=== PATIENT | female | born 1955 | race Caucasian/White ===

== ENCOUNTER → 2017-12-08 09:11 | Outpatient (CLI) | payer OTHER, SELFPAY ==
--- NOTE | 2017-12-08 09:15 | DI.US.S_ITS ---
PROCEDURE: US PERIPH VENOUS LOW EXTREM RT INDICATIONS: right leg pain, r/o DVT TECHNIQUE: Real-time imaging, as well as color and pulse Doppler interrogation, were performed of the lower extremity deep veins from the inguinal ligament to the popliteal fossa. COMPARISON: None. FINDINGS: The deep veins are normally compressible, and free of intraluminal thrombus. Color and pulse Doppler demonstrate normal phasic intraluminal flow. There is normal augmentation response to distal compression maneuver. IMPRESSION: Negative for deep venous thrombosis. Dictated by: Epi Burkett M.D. on 12/08/2017 at 8:55 Approved by: Epi Burkett M.D. on 12/08/2017 at 8:55
== END ==
PROVIDERS: PCP Family Medicine; Visit Provider Internal Medicine
DX: M79.604 Pain in right leg (principal)
CPT/HCPCS: 93971

== ENCOUNTER → 2018-04-08 08:55 | Outpatient (CLI) | payer MEDICARE, OTHER, SELFPAY ==
[2018-04-08 09:46] LABS: Blood Urea Nitrogen 16 mg/dL (7-17); Calcium 9.8 mg/dL (8.4-10.2); Carbon Dioxide 28 mmol/L (22-32); Chloride 104 mmol/L (98-107); Cholesterol 295 mg/dL (140-199); Estimated Glomerular Filt Rate > 60.0 mL/min (>60); Glucose 99 mg/dL (80-110); HDL Cholesterol 66 mg/dL (40-60); HEMOLYSIS < 15 (0-50); LDL Cholesterol Calculated 197 mg/dL (<100); Potassium 3.9 mmol/L (3.4-5.1); Sodium 141 mmol/L (137-145); Triglycerides 158 mg/dL (35-150)
[2018-04-08 10:14] LABS: Creatinine Urine Random 196.4 mg/dL
[2018-04-08 10:42] LABS: Thyroid Stimulating Hormone 4.09 uIU/mL (0.47-4.68)
[2018-04-08 11:14] LABS: Microalbumi Creatinin Ratio Ur 3492.8 ug/mg CR (<30)
== END ==
PROVIDERS: PCP Family Medicine; Visit Provider Family Medicine
DX: E03.9 Hypothyroidism, unspecified (principal); I10 Essential (primary) hypertension
CPT/HCPCS: 36415; 80048; 80061; 82043; 82570; 84443

== ENCOUNTER 2018-04-20 08:51 | Outpatient (RCR) | payer MEDICARE, OTHER, SELFPAY ==
--- NOTE | 2018-04-20 12:53 | PT.OIE ---
Current Diagnoses Strain of muscle, fascia and tendon of the posterior muscle group at thigh level, right thigh, initial encounter (04/20/18) Past Medical History (Last Updated 09/14/17 @ 12:23 by Poornima Myrick) Osteopenia (Chronic) Depression (Chronic 2007) Hypertension (Chronic 2010) Hypothyroidism (Chronic 1999) Migraines (Chronic 1955) Foot pain (Chronic 2006) Fractures (Resolved 1959) Past Surgical History (Last Updated 09/14/17 @ 12:20 by Poornima Myrick) Anesthesia (Resolved) Status post cholecystectomy (Resolved 2005) Status post hysterectomy (Resolved 1998) Provider Visit Care Team Role Provider Type Trish Mabry MD Attending Provider Physician Primary Care Provider Specialty: [facility] Practice Address: [address] [place] [address] Email: [email or web address] Physical Therapy Initial Evaluation PT-OP-A Visit Information Start: 04/20/18 09:46 Freq: Status: Active Protocol: Document 04/20/18 09:58 EA (Rec: 04/20/18 10:57 EA [id number]) Out-Patient Physical Therapy Visit Information Visit Information Visit Type Initial Evaluation Visit Start Time 09:00 Visit Stop Time 09:45 Total Visit Minutes 45 Visit Number 1 Number of TRANSFUSION NURSE Visits 0 Evaluation Information Evaluation Date 04/20/18 PT-OP-B Current Condition Start: 04/20/18 09:46 Freq: Status: Active Protocol: Document 04/20/18 09:58 EA (Rec: 04/20/18 10:57 EA [id number]) Current Condition History of Current Condition Onset Date November/2017 Current Complaints Right hamstring localized pain rated 4/10 History of Current Condition Present condition started sometime in November 2017 where she drove 200 miles from [place] to [place] and vise versa. Patient reports hamstring pain increased when putting pressure in it and increased walking distance and relieved with heat and off pressure. Patient Recalled to have fallen sometime and in August/2017 and March 22/2018 due to house clutters, however can not recall any hamstring pain. Patient has history of sciatica 20 years ago and plantar fasciitis 10 years ago but feels insignificant with current condition. Patient seen her doctor and was prescribe with muscle relaxant initially and reports helped a bit. Prior Treatments and Tests None identified Future Testing and Treatments Planned None identified Treatment Goals Patient/Caregiver Goals Patient wants to be able to walk her dogs and cats outside for more than 45 mins without increase of symptoms. 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 > 45 mins outside walk with her dogs and cats Current Functional Impairments (Reported) Functional Limitations- ADL's Indepedent with limitation in all activites that requires > 30 mins of walking Functional Limitations- Mobility/Gait Unable to walk more than 15 mins due to increase in pain Functional Limitations- Work/School Retired Functional Limitations- Recreation/ Unable to walk with her dogs Hobbies and cats > more than 15 mins PT-OP-C Subjective Start: 04/20/18 09:46 Freq: Status: Active Protocol: Document 04/20/18 09:58 EA (Rec: 04/20/18 10:57 EA [id number]) OP-PT Subjective Patient Comments Patient Comments Pt c/o difficulty of > 15 mins walks, sitting tolerance and driving due to localized right hamstring achy pain. Patient Reported Progress Same Patient Questionnaires Lower Extremity Functional Scale LEFS Score 36 LEFS Impairment 40 to 59% Impaired (Score 32- 47) OP-PT Pain Assessment Location Right Posterior Thigh Pain Location Details right distal hamstring, upper/ mid gluteals Intensity 5 Scale Used Numeric (1 - 10) Description Aching Frequency Intermittent Pain Aggravating Factors Position Sitting Walking Stair Climbing Pain Alleviating Factors Heat Other Pain Alleviating Factors medication Home Pain Medication Use Pain Medications Used Yes Pain Behaviors Pain Behaviors Facial Grimacing PT-OP-D Balance Start: 04/20/18 09:46 Freq: Status: Active Protocol: Document 04/20/18 09:58 EA (Rec: 04/20/18 10:57 EA [id number]) Balance Tests Single Limb Standing Single Limb- Right < 3 secs Single Limb- Left < 3 seconds PT-OP-G Mobility & Gait Start: 04/20/18 09:46 Freq: Status: Active Protocol: Document 04/20/18 09:58 EA (Rec: 04/20/18 10:57 EA [id number]) OP Gait Assessment Gait Gait Assistance Required: Independent Assistive Devices Assistive Device None Gait Deviations General Gait Pattern Antalgic Lateral Trunk Lean Comments Gait Comments lateral trunk leaned towards left. PT-OP-J Posture/Palpation/Skin Start: 04/20/18 09:46 Freq: Status: Active Protocol: Document 04/20/18 09:58 EA (Rec: 04/20/18 10:57 EA [id number]) Posture Evaluation Comments Posture Comments Fair general body posture: Fwd head body posture with rounded shoulders. Deressed right shoulder and elvated right hip noted. Palpation Assessment Location One Palpation Location Upper/lower right gluteals, R distal mediolateral hamstrings Palpation Findings Soft Tissue Tightness Tenderness Palpation Details Grade 3/4 Skin Assessment Other Assessments Skin Assessment Comments No acute signs of inflammation PT-OP-K Range of Motion Start: 04/20/18 09:46 Freq: Status: Active Protocol: Document 04/20/18 09:58 EA (Rec: 04/20/18 10:57 EA [id number]) Knee Goniometric Range of Motion Knee Measured in Degrees Left Patient Position Prone Flexion Active (degrees) 110 Hyper-Extension Active 5 Right Patient Position Prone Flexion Active (degrees) 90 Flexion Passive (degrees) 110 Extension Active (degrees) 0 Hyper-Extension Active 0 PT-OP-L Special Tests Start: 04/20/18 09:46 Freq: Status: Active Protocol: Document 04/20/18 09:58 EA (Rec: 04/20/18 10:57 EA [id number]) Special Tests Knee Special Tests Diandra's Test Test Results negative Kaleigh's Test Test Results negative PT-OP-M Strength Start: 04/20/18 09:46 Freq: Status: Active Protocol: Document 04/20/18 09:58 EA (Rec: 04/20/18 10:57 EA [id number]) Hip Strength Hip Manual Muscle Testing Right Extension (S1) 4 Good Abduction 4 Good Adduction 5 Normal External Rotation 3+ Fair+ Internal Rotation 4 Good Knee Strength Knee Manual Muscle Testing Right Flexion (S2) 3+ Fair+ Extension (L3) 4 Good Comments Prone knee flexion is weak with increased pain. Overpressure to knee flexor aggravate pain. Ankle/Foot Strength Ankle and Foot Manual Muscle Testing Left Comments BOth ankle DF/PF are WNL; patient able to walk on toes and heels PT-OP-Q Treatments Start: 01/23/19 09:46 Freq: Status: Active Protocol: Document 04/20/18 09:58 EA (Rec: 04/20/18 10:57 EA [id number]) Self-Care/Home Management Treatment Education Patient Education Body Mechanics Home Exercise Program Joint Protection Pain Management Posture Safety PT-OP-T Assessment and Plan Start: 04/20/18 09:46 Freq: Status: Active Protocol: Document 04/20/18 09:58 EA (Rec: 04/20/18 10:57 EA [id number]) Physical Therapy Assessment Rehab Potential Rehabilitation Potential Good Evaluation Complexity Number of Personal Factors/Comorbidities 1-2 Number of Body Systems Impaired 3 Clinical Presentation at Evaluation Evolving Impairments Impairments Activity Tolerance Balance Functional Activities Gait Pain Posture Soft Tissue Mobility Strength Other Concerns Fall Risk No Barriers to Rehabilitation Depression Goals Four Impairment Walking < 15 mins Prison Goal (LTG) Patient will walk > 30 mins with her dogs/cats with no increase in symptoms Three Impairment Decreased sitting tolerance Prison Goal (LTG) Patient will sit on chair with even thigh pressure more than 45 mins with no increase in symptoms LTG Duration 4 wks Two Impairment LEFS 36/80 Prison Goal (LTG) LEFS > 50/80 LTG Duration 4 wks One Impairment No HEP in place Impress Associate Goal (LTG) Patient will exhibit independent to home exercises program and will comply to pre -cautions. LTG Duration 2 wks Assessment Summary Assessment Pleasant 63 y/o F patient with a referring diagnosis of right hamstring strain. Today patient demonstrates signs and symptoms consistent with R hamstring strain with possible additional piriformis syndrome . Manual muscle test, ROM, gait, and palpation reveals dysfunction to right hamstring and hip external rotators. Due to above bodily dysfucntion, patient unable to perform daily activities that was normally perform with no limitation six months ago. In my professional opinion, patient would benefit with skilled PT to address the aforementioned issues. Physical Therapy Plan Frequency and Duration Frequency of Treatment 2x/Week Duration of Treatment 8 wks Plan of Care Start Date 04/20/18 Plan of Care End Date 06/22/18 Therapeutic Interventions Therapeutic Interventions Gait Training Home Exercise Program Joint Mobilizations Manual Therapy Patient/Caregiver Education Self-Care/Home Management Soft Tissue Mobilization Therapeutic Exercises Modalities Cold Pack/Ice Massage Electric Stimulation Hot Packs Ultrasound Next Visit Focus/Plan Next Note Type Treatment Note Next Visit Plan Provide HEP images, manual stretch, STM, modalities
--- NOTE | 2018-04-20 12:55 | PT.OPPOC ---
Current Diagnoses Strain of muscle, fascia and tendon of the posterior muscle group at thigh level, right thigh, initial encounter (04/20/18) Provider Visit Care Team Role Provider Type Trish Mabry MD Attending Provider Physician Primary Care Provider Specialty: [facility] Address: [address] [place] [address], [facility] Email: [email or web address] Plan Of Care PT-OP-T Assessment and Plan Start: 04/20/18 09:46 Freq: Status: Active Protocol: Document 04/20/18 09:58 EA (Rec: 04/20/18 10:57 EA [id number]) Physical Therapy Assessment Rehab Potential Rehabilitation Potential Good Evaluation Complexity Number of Personal Factors/Comorbidities 1-2 Number of Body Systems Impaired 3 Clinical Presentation at Evaluation Evolving Impairments Impairments Activity Tolerance Balance Functional Activities Gait Pain Posture Soft Tissue Mobility Strength Other Concerns Fall Risk No Barriers to Rehabilitation Depression Goals Four Impairment Walking < 15 mins Detention Goal (LTG) Patient will walk > 30 mins with her dogs/cats with no increase in symptoms Three Impairment Decreased sitting tolerance Inbound Sales Advisor Goal (LTG) Patient will sit on chair with even thigh pressure more than 45 mins with no increase in symptoms LTG Duration 4 wks Two Impairment LEFS 36/80 Inbound Sales Advisor Goal (LTG) LEFS > 50/80 LTG Duration 4 wks One Impairment No HEP in place Detention Goal (LTG) Patient will exhibit independent to home exercises program and will comply to pre -cautions. LTG Duration 2 wks Assessment Summary Assessment Pleasant 63 y/o F patient with a referring diagnosis of right hamstring strain. Today patient demonstrates signs and symptoms consistent with R hamstring strain with possible additional piriformis syndrome. Manual muscle test, ROM, gait, and palpation reveals dysfunction to right hamstring and hip external rotators. Due to above bodily dysfunction, patient unable to perform daily activities that was normally perform with no limitation six months ago. In my professional opinion, patient would benefit with skilled PT to address the aforementioned issues. Physical Therapy Plan Frequency and Duration Frequency of Treatment 2x/Week Duration of Treatment 8 wks Plan of Care Start Date 04/20/18 Plan of Care End Date 06/22/18 Therapeutic Interventions Therapeutic Interventions Gait Training Home Exercise Program Joint Mobilizations Manual Therapy Patient/Caregiver Education Self-Care/Home Management Soft Tissue Mobilization Therapeutic Exercises Modalities Cold Pack/Ice Massage Electric Stimulation Hot Packs Ultrasound Next Visit Focus/Plan Next Note Type Treatment Note Next Visit Plan Provide HEP images, manual stretch, STM, modalities Plan of Care Dates Plan of Care Start Date 04/20/18 Plan of Care End Date 06/22/18 Please Sign and Return: I have reviewed this Plan of Care and certify that the skilled therapy services above are required to meet the patient?s needs. Physician Signature Date Printed Name and Credentials Clinical Instructor Signature Printed Name and Credentials
--- NOTE | 2018-05-30 13:27 | PT.OPDS ---
Current Diagnoses Strain of muscle, fascia and tendon of the posterior muscle group at thigh level, right thigh, initial encounter (04/20/18) Provider Visit Care Team Role Provider Type Trish Mabry MD Attending Provider Physician Primary Care Provider Specialty: [facility] Practice Address: [address] [place] [address], [facility] Email: [email or web address] Visit Number Visit Number 1 Discharge Summary PT-OP-B Current Condition Start: 04/20/18 09:46 Freq: Status: Active Protocol: Document 04/20/18 09:58 EA (Rec: 04/20/18 10:57 EA [id number]) Current Condition History of Current Condition Onset Date November/2017 Current Complaints Right hamstring localized pain rated 4/10 History of Current Condition Present condition started sometime in November 2017 where she drove 200 miles from [place] to [place] and vise versa. Patient reports hamstring pain increased when putting pressure in it and increased walking distance and relieved with heat and off pressure. Patient Recalled to have fallen sometime and in August/2017 and March 22/2018 due to house clutters, however can not recall any hamstring pain. Patient has history of sciatica 20 years ago and plantar fasciitis 10 years ago but feels insignificant with current condition. Patient seens her doctor and was prescribe with muscle relaxant initially and reports helped a bit. Prior Treatments and Tests None identified Future Testing and Treatments Planned None identified Treatment Goals Patient/Caregiver Goals Patient wants to be able to walk her dogs and cats outside for more than 45 mins without increase of symptoms. 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 > 45 mins outside walk with her dogs and cats Current Functional Impairments (Reported) Functional Limitations- ADL's Indepedent with limitation in all activites that requires > 30 mins of walking Functional Limitations- Mobility/Gait Unable to walk more than 15 mins due to increase in pain Functional Limitations- Work/School Retired Functional Limitations- Recreation/ Unable to walk with her dogs Hobbies and cats > more than 15 mins PT-OP-C Subjective Start: 04/20/18 09:46 Freq: Status: Active Protocol: Document 05/30/18 13:18 EA (Rec: 05/30/18 13:27 EA [id number]) OP-PT Subjective Patient Comments Patient Comments Recieved email from bundle cutter on 05/23/2018 stating that patient would like discharge to to changed in medical status. Reports states that patient is aware about new doctor's referral if she wishes to come back. PT-OP-D Balance Start: 04/20/18 09:46 Freq: Status: Active Protocol: Document 04/20/18 09:58 EA (Rec: 04/20/18 10:57 EA [id number]) Balance Tests Single Limb Standing Single Limb- Right < 3 secs Single Limb- Left < 3 seconds PT-OP-G Mobility & Gait Start: 04/20/18 09:46 Freq: Status: Active Protocol: Document 04/20/18 09:58 EA (Rec: 04/20/18 10:57 EA [id number]) OP Gait Assessment Gait Gait Assistance Required: Independent Assistive Devices Assistive Device None Gait Deviations General Gait Pattern Antalgic Lateral Trunk Lean Comments Gait Comments lateral trunk leaned towards left. PT-OP-J Posture/Palpation/Skin Start: 04/20/18 09:46 Freq: Status: Active Protocol: Document 04/20/18 09:58 EA (Rec: 04/20/18 10:57 EA [id number]) Posture Evaluation Comments Posture Comments Fair general body posture: Fwd head body posture with rounded shoulders. Deressed right shoulder and elvated right hip noted. Palpation Assessment Location One Palpation Location Upper/lower right gluteals, R distal mediolateral hamstrings Palpation Findings Soft Tissue Tightness Tenderness Palpation Details Grade 3/4 Skin Assessment Other Assessments Skin Assessment Comments No acute signs of inflammation PT-OP-K Range of Motion Start: 04/20/18 09:46 Freq: Status: Active Protocol: Document 04/20/18 09:58 EA (Rec: 04/20/18 10:57 EA [id number]) Knee Goniometric Range of Motion Knee Measured in Degrees Left Patient Position Prone Flexion Active (degrees) 110 Hyper-Extension Active 5 Right Patient Position Prone Flexion Active (degrees) 90 Flexion Passive (degrees) 110 Extension Active (degrees) 0 Hyper-Extension Active 0 PT-OP-L Special Tests Start: 04/20/18 09:46 Freq: Status: Active Protocol: Document 04/20/18 09:58 EA (Rec: 04/20/18 10:57 EA [id number]) Special Tests Knee Special Tests Diandra's Test Test Results negative Kaleigh's Test Test Results negative PT-OP-M Strength Start: 04/20/18 09:46 Freq: Status: Active Protocol: Document 04/20/18 09:58 EA (Rec: 04/20/18 10:57 EA [id number]) Hip Strength Hip Manual Muscle Testing Right Extension (S1) 4 Good Abduction 4 Good Adduction 5 Normal External Rotation 3+ Fair+ Internal Rotation 4 Good Knee Strength Knee Manual Muscle Testing Right Flexion (S2) 3+ Fair+ Extension (L3) 4 Good Comments Prone knee flexion is weak with increased pain. Overpressure to knee flexor aggravate pain. Ankle/Foot Strength Ankle and Foot Manual Muscle Testing Left Comments BOth ankle DF/PF are WNL; patient able to walk on toes and heels PT-OP-T Assessment and Plan Start: 04/20/18 09:46 Freq: Status: Active Protocol: Document 05/30/18 13:18 EA (Rec: 05/30/18 13:27 EA [id number]) Physical Therapy Assessment Assessment Summary Assessment Patient is discharge upon request. Physical Therapy Plan Discharge Physical Therapy Discharge Reasons Change in Medical Status Discharge Comments Patient request
== END 2018-04-20 12:18 ==
LOC: PHYS 08:51
PROVIDERS: PCP Family Medicine; Visit Provider Family Medicine
DX: S76.311A Strain of muscle, fascia and tendon of the posterior muscle group at thigh level, right thigh, initial encounter (principal)
CPT/HCPCS: 97162; 97535

== ENCOUNTER → 2018-06-02 07:42 | Outpatient (CLI) | payer MEDICARE, OTHER, SELFPAY ==
--- NOTE | 2018-06-02 07:45 | DI.MRI.S_ITS ---
PROCEDURE: MR LUMBAR SPINE WO CON INDICATIONS: low back pain with radiculopathy TECHNIQUE: Noncontrast sagittal T1 spin echo and T2 fast echo, sagittal STIR, axial T1 and T2 fast spin echo through the lumbar spine. In cases with scoliosis, additional coronal T2 fast spin echo may be performed. COMPARISON: None. FINDINGS: Image quality: Excellent. Alignment and Curvature: There is normal bony alignment. Bone Marrow: Marrow is of normal overall signal. No acute vertebral body compression fractures. Spinal Cord: Conus medullaris terminates at the L1 level. Visualized cord demonstrates normal signal and size. 1.6 mm thick, elongated linear lipoma of the filum terminale extending to the L4-5 level. 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 Paraspinous Soft Tissues: No paravertebral masses. Cysts in each kidney. L1-L2: Normal appearance. L2-L3: Mild facet and ligamentum flavum hypertrophy. L3-L4: Mild disc height loss and minimal circumferential disc bulge. Mild facet and ligamentum flavum hypertrophy. Mild right foraminal narrowing. L4-L5: Mild to moderate facet arthropathy and ligamentum flavum hypertrophy. Minimal circumferential disc bulge. Mild left frontal narrowing mainly due to facet spurring.. L5-S1: Normal disc. Mild facet arthropathy. IMPRESSION: 1. Mild disc and facet degeneration at the L3-4 and L4-5 level primarily causing right L3-4 and left L4-5 neural foraminal narrowing. Dictated by: Lali Cantu M.D. on 06/02/2018 at 7:59 Approved by: Lali Cantu M.D. on 06/02/2018 at 8:11
== END ==
PROVIDERS: PCP Family Medicine; Visit Provider Family Medicine
DX: M54.5 Low back pain (principal); M51.16 Intervertebral disc disorders with radiculopathy, lumbar region; M48.061 Spinal stenosis, lumbar region without neurogenic claudication
CPT/HCPCS: 72148

== ENCOUNTER → 2018-11-10 08:07 | Outpatient (CLI) | payer MEDICARE, OTHER, SELFPAY ==
--- NOTE | 2018-11-10 08:12 | DI.MRI.S_ITS ---
PROCEDURE: MR BRAIN (IAC) WWO CON INDICATIONS: sudden severe vertigo, exam suggests central vertigo TECHNIQUE: Noncontrast sagittal T1 spin echo, axial FLAIR, axial gradient echo, axial diffusion and ADC through the brain. Axial thin-slice 3D CISS, coronal TruFISP, axial T1 spin echo with fat saturation through the internal auditory canals. After the administration of contrast, thin slice axial and coronal T1 spin echo with fat saturation through the internal auditory canals, and axial T1 spin echo with fat saturation through the brain. COMPARISON: None. FINDINGS: Image quality: Excellent. Cerebellopontine angles: No cerebellopontine angle masses. Inner ear structures appear normally formed. No suspicious enhancement in the internal auditory canal or along the course of the 7th cranial nerve. CSF spaces: Ventricles are normal in size and shape. No extra-axial fluid collections. Basal cisterns are patent. Brain: No intracranial bleeds or mass effects. Junior-white matter interface is intact. No abnormal intracranial enhancement. Diffusion weighted images demonstrate no acute ischemic insults. Brainstem appears normal. Normal intravascular flow voids are present. Skull and face: Calvarial marrow signal is normal. Orbits appear normal. Sinuses: Sinuses and mastoids are clear. IMPRESSION: No discrete mass within the cerebellopontine angle or IACs bilaterally. No abnormal enhancement. No evidence of acute ischemia. Dictated by: Puneet Rutledge M.D. on 11/10/2018 at 9:19 Approved by: Puneet Rutledge M.D. on 11/10/2018 at 9:26
== END ==
PROVIDERS: PCP Family Medicine; Visit Provider Family Medicine
DX: R42 Dizziness and giddiness (principal)
CPT/HCPCS: 70553

== ENCOUNTER → 2019-02-15 09:01 | Outpatient (CLI) | payer MEDICARE, OTHER, SELFPAY ==
--- NOTE | 2019-02-15 | DI.MG.S_ITS ---
BILATERAL DIGITAL SCREENING MAMMOGRAM 3D/2D WITH CAD: 02/15/2019 CLINICAL: Routine screening. Comparison is made to exams dated: 03/10/2016 mammogram, 11/08/2014 mammogram, and 11/15/2013 mammogram - [facility]. The tissue of both breasts is predominantly fatty. Current study was also evaluated with a Computer Aided Detection (CAD) system. No significant masses, calcifications, or other findings are seen in either breast. There has been no significant interval change. IMPRESSION: NEGATIVE There is no mammographic evidence of malignancy. A 1 year screening mammogram is recommended. This exam was interpreted at Station ID: [id number]. NOTE: For mammograms, a report in lay terms will be sent to the patient. Approximately 15% of breast malignancies will not be visualized mammographically. In the management of a palpable breast mass, a negative mammogram must not discourage biopsy of a clinically suspicious lesion. Electronically Signed By: Sam colvin/lisa:02/15/2019 09:58:44 letter sent: Normal Exam ACR BI-RADS Category 1: Negative [id number]
== END ==
PROVIDERS: PCP Family Medicine; Visit Provider Family Medicine
DX: Z12.31 Encounter for screening mammogram for malignant neoplasm of breast (principal)
CPT/HCPCS: 77063; 77067

== ENCOUNTER → 2020-05-02 16:44 | Outpatient (CLI) | payer MEDICARE, OTHER, SELFPAY ==
[2020-05-02] MEDS: COVID-19 VACC #1, MRNA(MOD) 100 MCG/0.5 ML VIAL IM (16:51)
== END ==
PROVIDERS: PCP Family Medicine; Visit Provider Internal Medicine
DX: Z23 Encounter for immunization (principal)
CPT/HCPCS: 0011A; 91301

== ENCOUNTER → 2020-05-30 08:35 | Outpatient (CLI) | payer MEDICARE, OTHER, SELFPAY ==
[2020-05-30] MEDS: COVID-19 VACC #2, MRNA(MOD) 100 MCG/0.5 ML VIAL IM (08:39)
== END ==
PROVIDERS: PCP Family Medicine; Visit Provider Internal Medicine
DX: Z23 Encounter for immunization (principal)
CPT/HCPCS: 0012A; 91301

== ENCOUNTER → 2020-07-08 10:45 | Outpatient (CLI) | payer MEDICARE, OTHER, SELFPAY ==
[2020-07-08 11:41] LABS: Alanine Aminotransferase 21 IU/L (<35); Albumin 4.3 g/dL (3.5-5.0); Albumin Globulin Ratio 1.3 (1.0-2.8); Alkaline Phosphatase 81 U/L (38-126); Aspartate Aminotransferase 35 IU/L (14-36); BUN Creatinine Ratio 17.7 (6-22); Bilirubin Total 0.3 mg/dL (0.2-1.3); Blood Urea Nitrogen 14 mg/dL (7-17); Calcium 10.1 mg/dL (8.4-10.2); Carbon Dioxide 28 mmol/L (22-32); Chloride 104 mmol/L (98-107); Cholesterol 163 mg/dL (140-199); Estimated Glomerular Filt Rate > 60.0 mL/min (>60); Globulin 3.2 g/dL (1.7-4.1); Glucose 98 mg/dL (80-110); HDL Cholesterol 70 mg/dL (40-60); HEMOLYSIS < 15 (0-50); LDL Cholesterol Calculated 74 mg/dL (<100); Potassium 4.2 mmol/L (3.4-5.1); Sodium 140 mmol/L (137-145); Total Protein 7.5 g/dL (6.3-8.2); Triglycerides 94 mg/dL (35-150)
[2020-07-08 12:10] LABS: Thyroid Stimulating Hormone 1.93 uIU/mL (0.47-4.68)
== END ==
PROVIDERS: PCP Family Medicine; Referring Provider Family Medicine; Visit Provider Family Medicine
DX: I10 Essential (primary) hypertension (principal); E03.9 Hypothyroidism, unspecified
CPT/HCPCS: 80053; 80061; 84443

== ENCOUNTER → 2020-08-31 07:57 | Outpatient (CLI) | payer MEDICARE, OTHER, SELFPAY ==
--- NOTE | 2020-08-31 08:01 | DI.MG.S_ITS ---
BILATERAL DIGITAL SCREENING MAMMOGRAM 3D/2D WITH CAD: 08/31/2020 CLINICAL: Routine screening. Comparison is made to exams dated: 02/15/2019 mammogram - [facility], 03/10/2016 mammogram, and 11/08/2014 mammogram - [facility]. The tissue of both breasts is predominantly fatty. Current study was also evaluated with a Computer Aided Detection (CAD) system. No significant masses, calcifications, or other findings are seen in either breast. There has been no significant interval change. IMPRESSION: NEGATIVE There is no mammographic evidence of malignancy. A 1 year screening mammogram is recommended. This exam was interpreted at Station ID: [id number]. NOTE: For mammograms, a report in lay terms will be sent to the patient. Approximately 15% of breast malignancies will not be visualized mammographically. In the management of a palpable breast mass, a negative mammogram must not discourage biopsy of a clinically suspicious lesion. Electronically Signed By: Sam silva/lisa:09/02/2020 07:27:03 letter sent: Normal Exam ACR BI-RADS Category 1: Negative [id number]
== END ==
PROVIDERS: PCP Family Medicine; Referring Provider Family Medicine; Visit Provider Family Medicine
DX: Z12.31 Encounter for screening mammogram for malignant neoplasm of breast (principal)
CPT/HCPCS: 77063; 77067

== ENCOUNTER → 2021-01-31 12:13 | Outpatient (CLI) | payer MEDICARE, OTHER, SELFPAY ==
[2021-01-31] MEDS: COVID-19 VACC #3, MRNA(MOD) 50 MCG/0.25 ML VIAL IM (12:19)
== END ==
PROVIDERS: PCP Family Medicine; Visit Provider Internal Medicine
DX: Z23 Encounter for immunization (principal)
CPT/HCPCS: 0013A; 91301

== ENCOUNTER 2021-08-19 12:33 | Emergency (ER) | payer MEDICARE, OTHER, SELFPAY ==
[2021-08-19 12:50] VITALS: BP 150/69; PULSE 63; RESP 18; TEMP 36.2; O2SAT 100; BMI 30.4
--- NOTE | 2021-08-19 13:53 | ED_ITS ---
HPI - Wound/Laceration <Geraldo Singleton PA-C - Last Filed: 08/19/21 15:45> General Chief Complaint: Wound/Laceration Stated Complaint: LACERATION ABOVE RIGHT EYE Time Seen by Provider: 08/19/21 13:25 History of Present Illness HPI narrative: 66-year-old female with past medical history hypertension, hyperlipidemia, hypothyroidism, proteinuria, migraines presents to the ED status post a laceration sustained to the right brow just prior to arrival. Patient states that she accidentally struck her bra 0 on the corner of her car's hatchback when shutting the trunk. Patient's last tetanus was 1991. Patient denies loss of consciousness. Patient is not on blood thinners. Patient took some aspirin this morning for a migraine. Patient denies lightheadedness, dizziness, vision changes. Patient endorses being able to walk normally. Related Data Previous Rx's Medication Instructions Recorded amitriptyline 10 mg tablet See Rx Instructions .ROUTE 07/28/21 .COMPLEX #270 tab escitalopram oxalate 10 mg tablet 10 mg PO DAILY #90 tab 07/28/21 escitalopram oxalate 20 mg tablet 20 mg PO DAILY #90 tab 07/28/21 levothyroxine 50 mcg tablet See Rx Instructions .ROUTE 07/28/21 (Euthyrox) .COMPLEX #90 tab lisinopril 20 mg tablet See Rx Instructions .ROUTE 07/28/21 .COMPLEX #180 tab rizatriptan 10 mg tablet (Maxalt) 10 mg PO Q2-4H PRN #30 tab 07/28/21 rosuvastatin 20 mg tablet See Rx Instructions .ROUTE 07/28/21 .COMPLEX #90 tab Allergies Allergy/AdvReac Type Severity Reaction Status Date / Time norfloxacin [From Noroxin] Allergy Unknown Verified 08/19/21 12:59 hydromorphone [From Dilaudid] AdvReac Intermediate side effect Verified 08/19/21 12:59 topiramate [From Topamax] AdvReac Intermediate leg cramps Verified 08/19/21 12: 59 erythromycin base AdvReac Mild hives Verified 08/19/21 12:59 Penicillins AdvReac Mild hives Verified 08/19/21 12:59 Review of Systems <Geraldo Singleton PA-C - Last Filed: 08/19/21 15:45> Review of Systems ROS Unobtainable: All systems reviewed & are unremarkable except as noted in HPI and below Constitutional Constitutional: Denies chills, Denies fatigue, Denies fever(s), Denies frequent falls, Denies lethargy and Denies weakness Eyes Eyes: Denies change in vision, Denies eye discharge, Denies irritation and Denies loss of vision ENT Ears, Nose, Mouth, and Throat: Denies change in voice, Denies dizziness, Denies neck pain, Denies sore throat and Denies throat swelling Cardiovascular Cardiovascular: Denies chest pain, Denies irregular heart rhythm, Denies lightheadedness, Denies palpitations, Denies dyspnea, Denies dyspnea on exertion and Denies orthopnea Respiratory Respiratory: Denies cough, Denies dyspnea, Denies dyspnea on exertion and Denies wheezing Gastrointestinal Gastrointestinal: Denies abdominal pain, Denies change in bowel habits, Denies diarrhea, Denies nausea and Denies vomiting Genitourinary Genitourinary: Denies hematuria, Denies flank pain, Denies urinary incontinence and Denies urinary urgency Musculoskeletal Musculoskeletal: Denies back pain, Denies muscle weakness, Denies neck pain, Denies numbness and Denies tingling Integumentary/Breasts Skin/Breast: Denies pruritus, Denies erythema, Denies rash and Denies wounds Comments: Laceration to right brow Neurologic Neurologic: Denies behavioral changes, Denies confusion, Denies dizziness, Denies frequent falls, Denies loss of vision, Denies numbness, Denies tingling and Denies weakness Psychiatric Psychiatric: Denies anxiety, Denies behavioral changes, Denies confusion, Denies depression, Denies homicidal ideation and Denies suicidal ideation Endocrine Endocrine: Denies fatigue, Denies flushing and Denies palpitations Hematologic/Lymphatic Hematologic/Lymphatic: Denies easy bruising Allergic/Immunologic Allergic/Immunologic: Denies urticaria, Denies throat swelling and Denies wheezing Patient History <Geraldo Singleton PA-C - Last Filed: 08/19/21 15:45> Medical History Depression (2007) Foot pain (2006) Fractures (1959) Hypertension (2010) Hypothyroidism (1999) Migraines (1955) Osteopenia Surgical History Anesthesia Status post cholecystectomy (2005) Status post hysterectomy (1998) Family History Father Heart disease High cholesterol Grandfather Heart disease Scarlet fever Mother Age: 95 Heart disease Hypertension Thyroid condition Grandmother Diabetes mellitus Hip fracture Sister Thyroid condition Family/Other Thyroid condition Brother No problems noted. Brother No problems noted. Brother No problems noted. Grandfather No problems noted. Grandmother No problems noted. Sister No problems noted. Sister Thyroid condition Social History marital status: pets and animals: Yes education level: college other: walking,quilting seatbelt use: always water heater temp set < 120 deg: Yes working smoke detector in home: Yes fire extinguisher in home: Yes carbon monox detector in home: Yes firearms in home: Yes do you feel safe at home: Yes Smoking Status: Never smoker during the past year weight has: increased > 10 lbs well-balanced diet: about half the time daily servings fruits/ve-4 eating out: rarely or never Type(s) of exercise: walking frequency: 5-6 times per week duration: 30-45 minutes/day Smoking Status: Never smoker alcohol intake frequency: 0-2 drinks per day Substance Use Type: does not use Exam <Geraldo Singleton PA-C - Last Filed: 08/19/21 15:45> Initial Vital Signs Initial Vital Signs: Vital Signs Temperature 97.1 F L 08/19/21 12:50 Pulse Rate 63 08/19/21 12:50 Respiratory Rate 18 08/19/21 12:50 Blood Pressure 150/69 H 08/19/21 12:50 Pulse Oximetry 100 08/19/21 12:50 Const General: cooperative, healthy appearing and comfortable HENMT Other HENMT:: 4 cm linear laceration to right brow. Bleeding controlled with pressure. Tenderness to palpation of the brow bone. Bruising around the eye. Vision grossly normal. Eyes General: Yes appearance normal, both eyes and all related structures Resp Effort & Inspection: normal respiratory effort Cardio Rate: regular rate Back/Spine/Pelvis Other: No midline tenderness to palpation. Neuro General: patient alert, patient awake and patient oriented x3 Psych Appearance: grossly normal Mental Status: mental status grossly normal <Jaimee Lemos MD - Last Filed: 08/19/21 17:57> Initial Vital Signs Initial Vital Signs: Vital Signs Temperature 97.1 F L 08/19/21 12:50 Pulse Rate 63 08/19/21 12:50 Respiratory Rate 18 08/19/21 12:50 Blood Pressure 150/69 H 08/19/21 12:50 Pulse Oximetry 100 08/19/21 12:50 Procedures <Geraldo Singleton PA-C - Last Filed: 08/19/21 15:45> Laceration Repair Laceration 1: Site: face (R brow) Side (If applicable): right Size (cm): 4 Description: linear Local Anesthetic: lidocaine 1% and with epi Amount of anesthesia used (mL): 2 Pre-repair: wound explored and irrigated extensively Skin layer closed with: nylon Skin layer suture size: 5-0 Number of sutures: 5 Technique: simple, interrupted Course <Geraldo Singleton PA-C - Last Filed: 08/19/21 15:45> Orders Ordered: Discontinued Medications Bacitracin (Bacitracin Oint 0.9 Gm Pckt) 1 applic TOP NOW ONE Stop: 08/19/21 15:36 Last Admin: 08/19/21 15:47 Dose: Not Given Documented by: RAYSA Diphtheria/Tetanus/Acell Pertussis (Tet,Diph,Pertuss(Acell),Vac/Pf 0.5 Ml Syringe) 0.5 ml IM .ONCE ONE Stop: 08/19/21 13:49 Last Admin: 08/19/21 13:57 Dose: 0.5 ml Documented by: JAE Lidocaine/Epinephrine (Lidocaine 1% W/Epi) 4 ml INJ INTRA-OP ONE Stop: 08/19/21 14:25 Last Admin: 08/19/21 14:40 Dose: 4 ml Documented by: RAYSA Vital Signs Vital signs: Vital Signs - 8 hr 08/19/21 12:50 Temperature 97.1 F L Pulse Rate 63 Respiratory Rate 18 Blood Pressure 150/69 H Pulse Oximetry 100 <Jaimee Lemos MD - Last Filed: 08/19/21 17:57> Orders Ordered: Discontinued Medications Bacitracin (Bacitracin Oint 0.9 Gm Pckt) 1 applic TOP NOW ONE Stop: 08/19/21 15:36 Last Admin: 08/19/21 15:47 Dose: Not Given Documented by: RAYSA Diphtheria/Tetanus/Acell Pertussis (Tet,Diph,Pertuss(Acell),Vac/Pf 0.5 Ml Syringe) 0.5 ml IM .ONCE ONE Stop: 08/19/21 13:49 Last Admin: 08/19/21 13:57 Dose: 0.5 ml Documented by: JAE Lidocaine/Epinephrine (Lidocaine 1% W/Epi) 4 ml INJ INTRA-OP ONE Stop: 08/19/21 14:25 Last Admin: 08/19/21 14:40 Dose: 4 ml Documented by: RAYSA Vital Signs Vital signs: Vital Signs - 8 hr 08/19/21 12:50 Temperature 97.1 F L Pulse Rate 63 Respiratory Rate 18 Blood Pressure 150/69 H Pulse Oximetry 100 MDM - Wound/Laceration <Geraldo Singleton PA-C - Last Filed: 08/19/21 15:45> [facility] Narrative Medical decision making narrative: 66-year-old female with past medical history hypertension, hyperlipidemia, hypothyroidism, proteinuria, migraines presents to the ED status post a laceration sustained to the right brow just prior to arrival. Concern for laceration versus fracture. Patient declined imaging. Counseled patient on updating tetanus, tetanus was updated in the ED today. Laceration was repaired with sutures. Wound care instructions, signs of infection discussed with patient. Patient verbalized understanding. Discharge Plan Departure Patient Disposition: Home Clinical Impression: Laceration Instructions: DI for Laceration Repair Activity Restrictions/Additional Instructions: You were evaluated in the ED today for a laceration. The laceration was repaired with 5 sutures. Sutures will need to be removed in 5-7 days. Your tetanus was also updated today in the ED, and is good for 10 years from now. Keep the wound clean and dry for the 1st 24 hours, after which you can wash with soap and water and keep clean and dry. All injuries, there is a possibility of infection. Signs of infection and will redness, swelling, pain, discharge, warmth. Return to the ED if you notice any signs of infection or you have continued bleeding. Prescriptions: No Action escitalopram oxalate 10 mg tablet 10 mg PO DAILY Qty: 90 0RF escitalopram oxalate 20 mg tablet 20 mg PO DAILY Qty: 90 0RF levothyroxine [Euthyrox] 50 mcg tablet See Rx Instructions .ROUTE .COMPLEX Qty: 90 0RF Dose Instruction: TAKE 1 TABLET BY MOUTH ONCE DAILY IN THE MORNING Rx Instructions: TAKE 1 TABLET BY MOUTH ONCE DAILY IN THE MORNING lisinopril 20 mg tablet See Rx Instructions .ROUTE .COMPLEX Qty: 180 0RF Dose Instruction: Take 1 tablet by mouth twice daily Rx Instructions: Take 1 tablet by mouth twice daily rosuvastatin 20 mg tablet See Rx Instructions .ROUTE .COMPLEX Qty: 90 0RF Dose Instruction: Take 1 tablet by mouth once daily Rx Instructions: Take 1 tablet by mouth once daily rizatriptan [Maxalt] 10 mg tablet 10 mg PO Q2-4H PRN (Reason: migraine headache) Qty: 30 0RF amitriptyline 10 mg tablet See Rx Instructions .ROUTE .COMPLEX Qty: 270 0RF Dose Instruction: TAKE 2 TABLETS BY MOUTH AT BEDTIME Rx Instructions: TAKE 2 to 3 TABLETS BY MOUTH AT BEDTIME as needed for sleep and anxiety Referrals: Trish Mabry MD [Primary Care Provider] - <Jaimee Lemos MD - Last Filed: 08/19/21 17:57> Cosign ED Attending Cosignature Attestation: I was immediately available in the department for consultation throughout this patient's visit. I agree with documentation as above. Jaimee Lemos MD
[2021-08-19] MEDS: TET,DIPH,PERTUSS(ACELL),VAC/PF 0.5 ML SYRINGE IM (13:57)
[2021-08-19] MEDS: LIDOCAINE 1% W/EPI 4 ML INJ (14:40)
== END 2021-08-19 15:50 | disposition home or self-care (01) ==
PROVIDERS: Emergency Provider Student in an Organized Health Care Education/Training Program; PCP Family Medicine
DX: S01.81XA Laceration without foreign body of other part of head, initial encounter (principal); W22.8XXA Striking against or struck by other objects, initial encounter; Z23 Encounter for immunization
CPT/HCPCS: 12013; 90471; 99283; 99284; 90715

== ENCOUNTER → 2021-09-05 10:21 | Outpatient (CLI) | payer MEDICARE, OTHER, SELFPAY ==
[2021-09-05 11:35] LABS: Cholesterol 154 mg/dL (140-199); HDL Cholesterol 72 mg/dL (40-60); LDL Cholesterol Calculated 72 mg/dL (<100); Triglycerides 52 mg/dL (35-150)
[2021-09-05 12:03] LABS: TSH w/ Reflex to FT4 1.31 uIU/mL (0.47-4.68)
== END ==
PROVIDERS: PCP Family Medicine; Referring Provider Family Medicine; Visit Provider Family Medicine
DX: E03.9 Hypothyroidism, unspecified (principal); E78.5 Hyperlipidemia, unspecified
CPT/HCPCS: 36415; 80061; 84443

== ENCOUNTER → 2022-02-27 11:03 | Outpatient (CLI) | payer MEDICARE, OTHER, SELFPAY ==
--- NOTE | 2022-02-27 11:06 | DI.MRI.S_ITS ---
PROCEDURE: MR LUMBAR SPINE WO CON INDICATIONS: Spinal stenosis, lumbar region with neurogenic cla TECHNIQUE: Noncontrast sagittal T1 spin echo and T2 fast echo, sagittal STIR, and T2 fast spin echo through the lumbar spine. In cases with scoliosis, additional coronal T2 fast spin echo may be performed. COMPARISON: None. FINDINGS: Image quality: Excellent. Alignment and Curvature: There is minimal anterolisthesis at L4-L5. Bone Marrow: Marrow is of normal overall signal. No acute vertebral body compression fractures. Spinal Cord: Conus medullaris terminates at the L1 level. Visualized cord demonstrates normal signal and size. Paraspinous Soft Tissues: No paravertebral masses. T12-L1: Normal appearance. L1-L2: Normal appearance. L2-L3: Mild loss of disc height is seen. Loss of disc signal is seen. Mild generalized disc bulge is seen. Mild bilateral neural foraminal narrowing is seen. No significant central canal narrowing is seen. These imaging findings have slightly progressed compared to the prior study. L3-L4: [id number] loss of disc height and disc signal can be seen. Moderate generalized disc bulge is seen. Mild facet joint hypertrophy is seen. There is moderate right-sided and minimal left-sided neural foraminal narrowing. No significant central canal narrowing is seen. When comparison is made with the prior images, these findings are similar. L4-L5: Mild loss of disc height is seen. Loss of disc signal is seen. Mild disc bulge is seen, with a slight central disc protrusion. At least moderate facet hypertrophy is seen at this level. There is at least moderate right-sided and moderate left-sided neural foraminal narrowing. Mild to moderate central canal narrowing is seen. When comparison is made with the prior images, these findings are similar. L5-S1: The disc height is well-preserved. Loss of disc signal is seen at this level. Mild generalized disc bulge is seen. Mild facet joint hypertrophy is seen. No significant neural foraminal or central canal narrowing can be seen. 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 IMPRESSION: Multiple levels of lower lumbar spine degenerative change are seen, which are slightly progressed at L2-L3 compared to the 2019 examination. Dictated by: Epi Burkett M.D. on 02/27/2022 at 12:54 Approved by: Epi Burkett M.D. on 02/27/2022 at 12:57
== END ==
PROVIDERS: PCP Family Medicine; Referring Provider Physical Medicine & Rehabilitation; Visit Provider Physical Medicine & Rehabilitation
DX: M48.062 Spinal stenosis, lumbar region with neurogenic claudication (principal); M47.816 Spondylosis without myelopathy or radiculopathy, lumbar region; M47.817 Spondylosis without myelopathy or radiculopathy, lumbosacral region
CPT/HCPCS: 72148

== ENCOUNTER → 2022-12-09 10:22 | Outpatient (CLI) | payer MEDICARE, OTHER, SELFPAY ==
[2022-12-09 12:11] LABS: Hemoglobin A1C% w Est Avg Glu 5.2 % (4.0-6.0)
[2022-12-09 12:18] LABS: Alanine Aminotransferase 28 IU/L (<35); Albumin 3.9 g/dL (3.5-5.0); Albumin Globulin Ratio 1.3 (1.0-2.8); Alkaline Phosphatase 85 U/L (38-126); Aspartate Aminotransferase 30 IU/L (14-36); BUN Creatinine Ratio 26.2 (6-22); Bilirubin Total 0.4 mg/dL (0.2-1.3); Blood Urea Nitrogen 22 mg/dL (7-17); Calcium 9.4 mg/dL (8.4-10.2); Carbon Dioxide 26 mmol/L (22-32); Chloride 104 mmol/L (98-107); Cholesterol 152 mg/dL (140-199); Estimated Glomerular Filt Rate > 60 mL/min (>60); Glucose 86 mg/dL (80-110); HDL Cholesterol 65 mg/dL (40-60); HEMOLYSIS < 15 (0-50); LDL Cholesterol Calculated 73 mg/dL (<100); Potassium 4.7 mmol/L (3.4-5.1); Sodium 138 mmol/L (137-145); Total Protein 6.9 g/dL (6.3-8.2); Triglycerides 69 mg/dL (35-150)
== END ==
PROVIDERS: PCP Family Medicine; Referring Provider Family Medicine; Visit Provider Family Medicine
DX: E03.9 Hypothyroidism, unspecified (principal); E78.49 Other hyperlipidemia; I10 Essential (primary) hypertension; Z13.1 Encounter for screening for diabetes mellitus
CPT/HCPCS: 36415; 80053; 80061; 83036; 84443

== ENCOUNTER → 2023-03-02 14:50 | Outpatient (CLI) | payer MEDICARE, OTHER, SELFPAY ==
--- NOTE | 2023-03-02 14:51 | DI.MG.S_ITS ---
BILATERAL DIGITAL SCREENING MAMMOGRAM 3D/2D WITH CAD: 03/02/2023 CLINICAL: Routine screening. Comparison is made to exams dated: 08/31/2020 mammogram, 02/15/2019 mammogram - [facility], and 03/10/2016 mammogram - [facility]. Both breasts are almost entirely fatty (category a/<25% glandular tissue). Current study was also evaluated with a Computer Aided Detection (CAD) system. There are benign calcifications in both breasts. There also is a biopsy clip in the right breast. No significant masses, calcifications, or other findings are seen in either breast. There has been no significant interval change. IMPRESSION: BENIGN There is no mammographic evidence of malignancy. A 1 year screening mammogram is recommended. Based on the Tyrer Cuzick model (a risk assessment model) the patient's lifetime risk is 2.6% and her 10 year risk is 1.5%. According to the ACR, ACS, and NCCN guidelines, an annual breast MRI exam along with mammogram is recommended if the patient's lifetime risk is 20% or greater. This exam was interpreted at Station ID: [id number]. NOTE: For mammograms, a report in lay terms will be sent to the patient. Approximately 15% of breast malignancies will not be visualized mammographically. In the management of a palpable breast mass, a negative mammogram must not discourage biopsy of a clinically suspicious lesion. Electronically Signed By: Deng faith/lisa:03/02/2023 16:07:13 letter sent: Normal Exam ACR BI-RADS Category 2: Benign Finding(s) [id number]
== END ==
PROVIDERS: PCP Family Medicine; Referring Provider Family Medicine; Visit Provider Family Medicine
DX: Z12.31 Encounter for screening mammogram for malignant neoplasm of breast (principal)
CPT/HCPCS: 77063; 77067

== ENCOUNTER → 2023-12-23 08:33 | Outpatient (CLI) | payer MEDICARE, OTHER, SELFPAY ==
[2023-12-23 09:07] LABS: Add Manual Diff / Slide Review NO; Basophils Absolute Auto 100 /uL (0-100); Basophils Percent Auto 0.8 % (0-2); Eosinophils Absolute Auto 200 /uL (0-450); Eosinophils Percent Auto 3.7 % (2-4); Hematocrit 36.9 % (36-46); Hemoglobin 12.5 g/dL (12.0-16.0); Lymphocytes Absolute Auto 1500 /uL (1100-4500); Lymphocytes Percent Auto 23.3 % (25-40); Mean Corpuscular HGB Conc 33.9 % (30-36); Mean Corpuscular Hemoglobin 30.4 PG (26-34); Mean Corpuscular Volume 89.6 fL (80-100); Monocytes Absolute Auto 400 /uL (0-900); Monocytes Percent Auto 6.3 % (3-14); Neutrophils Absolute Auto 4400 /uL (1500-7000); Neutrophils Percent Auto 65.9 % (50-75); Platelet Count 299 X10^3/uL (150-400); Red Blood Cell Count 4.11 X10^6/uL (4.0-5.2); Red Cell Distribution Width 14.6 % (11.6-14.8); White Blood Cell Count 6.6 X10^3/uL (4.5-11.0)
[2023-12-23 10:06] LABS: Alanine Aminotransferase 20 IU/L (<35); Albumin Globulin Ratio 1.4 (1.0-2.8); Alkaline Phosphatase 92 U/L (38-126); Aspartate Aminotransferase 29 IU/L (14-36); BUN Creatinine Ratio 26.7 (6-22); Bilirubin Total 0.5 mg/dL (0.2-1.3); Blood Urea Nitrogen 23 mg/dL (7-17); Calcium 10.2 mg/dL (8.4-10.2); Carbon Dioxide 26 mmol/L (22-32); Chloride 108 mmol/L (98-107); Cholesterol 160 mg/dL (140-199); Estimated Glomerular Filt Rate > 60 mL/min (>60); Globulin 2.9 g/dL (1.7-4.1); Glucose 96 mg/dL (80-110); HDL Cholesterol 85 mg/dL (40-60); HEMOLYSIS < 15 (0-50); LDL Cholesterol Calculated 60 mg/dL (<100); Potassium 4.3 mmol/L (3.4-5.1); Sodium 139 mmol/L (137-145); Total Protein 6.9 g/dL (6.3-8.2); Triglycerides 74 mg/dL (35-150)
[2023-12-23 10:29] LABS: TSH w/ Reflex to FT4 1.54 uIU/mL (0.47-4.68)
[2023-12-23 10:49] LABS: Hemoglobin A1C% w Est Avg Glu 5.1 % (4.0-6.0)
[2023-12-23 15:54] LABS: Microalbumin Urine Random 11.7 mg/dL (0-1.6)
[2023-12-23 16:03] LABS: Creatinine Urine Random 126.46 mg/dL
[2023-12-23 16:42] LABS: Hep C Virus Ab w/Reflex Quant NEGATIVE s/c (NEGATIVE)
== END ==
PROVIDERS: PCP Family Medicine; Referring Provider Family Medicine; Visit Provider Family Medicine
DX: E78.49 Other hyperlipidemia (principal); R80.9 Proteinuria, unspecified; M85.80 Other specified disorders of bone density and structure, unspecified site; F32.9 Major depressive disorder, single episode, unspecified; I10 Essential (primary) hypertension; E03.9 Hypothyroidism, unspecified; G43.909 Migraine, unspecified, not intractable, without status migrainosus
CPT/HCPCS: 36415; 80053; 80061; 82043; 82570; 83036; 84443; 85025; 86803

== ENCOUNTER → 2024-08-29 12:43 | Outpatient (CLI) | payer MEDICARE, OTHER, SELFPAY ==
--- NOTE | 2024-08-29 12:45 | DI.CT.S_ITS ---
PROCEDURE: CT HEAD/BRAIN WO CON INDICATIONS: Head injury 08/25 w headaches TECHNIQUE: Noncontrast 4.5 mm thick angled axial sections acquired from the foramen magnum to the vertex, with coronal and sagittal reformats. For radiation dose reduction, the following was used: automated exposure control, adjustment of mA and/or kV according to patient size. COMPARISON: None. FINDINGS: Image quality: Diagnostic. CSF spaces: Basal cisterns are patent. No extra-axial fluid collections. The ventricles are symmetric in size and shape. Brain: No intracranial bleeds or mass effect. There is cerebral volume loss, with resultant ventricular and sulcal prominence. There are periventricular and deep white matter chronic small vessel ischemic changes. There is intracranial internal carotid artery atherosclerosis. Skull and face: Calvarium and visualized facial bones appear intact, without suspicious lesions. Sinuses: Visualized sinuses and mastoids are clear. IMPRESSION: 1. CT head without acute intracranial abnormalities or acute calvarial fractures. 2. Age-related senescent changes and sequela of chronic small vessel ischemic disease. Dictated by: Sam Juan M.D. on 08/29/2024 at 13:27 Approved by: Sam Juan M.D. on 08/29/2024 at 13:27
--- NOTE | 2024-08-29 13:00 | DI.RAD.S_ITS ---
PROCEDURE: XR HAND LT MIN 3V INDICATIONS: L Hand pain due to fall TECHNIQUE: 3 views of the hand(s) acquired. COMPARISON: None. FINDINGS: Bones: No fractures or dislocations. Carpal bones are normally aligned. No suspicious bony lesions. Soft tissues: No suspicious soft tissue calcifications. IMPRESSION: Left hand without acute fracture or dislocation. If there is persistent clinical concern for occult fracture given adequate mechanism of injury, consider repeat imaging in 10-14 days. Immobilization as clinically indicated. Dictated by: Sam Juan M.D. on 08/29/2024 at 13:27 Approved by: Sam Juan M.D. on 08/29/2024 at 13:28
--- NOTE | 2024-08-29 13:00 | DI.RAD.S_ITS ---
PROCEDURE: XR KNEE LT 3V INDICATIONS: L knee Pain due to fall TECHNIQUE: 3 views of the knee were acquired. COMPARISON: None. FINDINGS: Bones: No fractures or dislocations. No suspicious bony lesions. Mild tricompartmental degenerative changes of the left knee. Soft tissues: No significant joint effusion. No suspicious soft tissue calcifications. Mild anterior left knee soft tissue swelling. IMPRESSION: Mild anterior left knee soft tissue swelling. No underlying fracture or dislocation. Mild tricompartmental osteoarthrosis of the left knee. If there are persistent symptoms or clinical suspicion for pathology, then repeat radiographs or advanced imaging (CT or MRI) may be considered for further evaluation. Dictated by: Sam Juan M.D. on 08/29/2024 at 13:28 Approved by: Sam Juan M.D. on 08/29/2024 at 13:29
== END ==
PROVIDERS: PCP Family Medicine; Referring Provider Family Medicine; Visit Provider Family Medicine
DX: S09.90XA Unspecified injury of head, initial encounter (principal); I67.82 Cerebral ischemia; I65.29 Occlusion and stenosis of unspecified carotid artery; R51.9 Headache, unspecified; M25.562 Pain in left knee; M79.642 Pain in left hand
CPT/HCPCS: 70450; 73130; 73562

== ENCOUNTER → 2024-10-14 09:01 | Outpatient (CLI) | payer MEDICARE, OTHER, SELFPAY ==
[2024-10-14 11:10] LABS: Add Manual Diff / Slide Review NO; Hematocrit 37.3 % (36-46); Hemoglobin 12.6 g/dL (12.0-16.0); Lymphocytes Absolute Auto 1800 /uL (1100-4500); Mean Corpuscular HGB Conc 33.7 % (30-36); Mean Corpuscular Hemoglobin 30.3 PG (26-34); Mean Corpuscular Volume 90.1 fL (80-100); Platelet Count 288 X10^3/uL (150-400)
[2024-10-14 11:32] LABS: Alanine Aminotransferase 22 IU/L (<35); Albumin 4.0 g/dL (3.5-5.0); Albumin Globulin Ratio 1.4 (1.0-2.8); Alkaline Phosphatase 83 U/L (38-126); Blood Urea Nitrogen 20 mg/dL (7-17); Calcium 9.8 mg/dL (8.4-10.2); Carbon Dioxide 25 mmol/L (22-32); Chloride 108 mmol/L (98-107); Cholesterol 150 mg/dL (140-199); Estimated Glomerular Filt Rate > 60 mL/min (>60); Globulin 2.9 g/dL (1.7-4.1); Glucose 83 mg/dL (70-99); HDL Cholesterol 76 mg/dL (40-60); HEMOLYSIS < 15 (0-50); Potassium 4.4 mmol/L (3.4-5.1); Sodium 141 mmol/L (137-145); Total Protein 6.9 g/dL (6.3-8.2); Triglycerides 83 mg/dL (35-150)
[2024-10-14 12:03] LABS: TSH w/ Reflex to FT4 1.43 uIU/mL (0.47-4.68)
[2024-10-14 12:12] LABS: Microalbumi Creatinin Ratio Ur 132.0 ug/mg CR (<30)
== END ==
PROVIDERS: PCP Family Medicine; Referring Provider Family Medicine; Visit Provider Family Medicine
DX: E78.49 Other hyperlipidemia (principal); R80.9 Proteinuria, unspecified; F33.41 Major depressive disorder, recurrent, in partial remission; I10 Essential (primary) hypertension; E03.9 Hypothyroidism, unspecified
CPT/HCPCS: 36415; 80053; 80061; 82043; 82570; 84443; 85025